=== PATIENT | male | born 1985 | race Asian ===

== ENCOUNTER 2021-03-26 06:26 | Emergency (ER) | payer OTHER ==
[~2021-03-26] VITALS: Ht 180.3 cm; Wt 94.3 kg
[2021-03-26 09:00] VITALS: BP 136/78; TEMP 98.9
== END 2021-03-26 09:00 | disposition home or self-care (01) ==
LOC: ED 06:26
DX: S43.492A Other sprain of left shoulder joint, initial encounter (principal); X58.XXXA Exposure to other specified factors, initial encounter; Y92.9 Unspecified place or not applicable
CPT/HCPCS: 96372; 99282; J1885

== ENCOUNTER 2021-06-10 07:32 | Emergency (ER) | payer OTHER ==
[~2021-06-10] VITALS: Ht 182.9 cm; Wt 104.3 kg
[2021-06-10 07:40] VITALS: TEMP 96.5
[2021-06-10 08:50] VITALS: BP 162/80
== END 2021-06-10 08:51 | disposition home or self-care (01) ==
LOC: ED 07:32
DX: M70.88 Other soft tissue disorders related to use, overuse and pressure other site (principal); Y93.89 Activity, other specified
CPT/HCPCS: 99282

== ENCOUNTER 2021-09-17 12:28 | Emergency (ER) | payer OTHER ==
[~2021-09-17] VITALS: Ht 182.9 cm; Wt 104.3 kg
[2021-09-17 12:37] VITALS: BP 187/67; TEMP 98.4
== END 2021-09-17 13:27 | disposition home or self-care (01) ==
LOC: ED 12:28
DX: S93.492A Sprain of other ligament of left ankle, initial encounter (principal); W18.39XA Other fall on same level, initial encounter; Y92.89 Other specified places as the place of occurrence of the external cause
CPT/HCPCS: 96372; 99283; J1885

== ENCOUNTER 2021-11-28 13:09 | Emergency (ER) | payer OTHER ==
[~2021-11-28] VITALS: Ht 182.9 cm; Wt 104.3 kg
[2021-11-28 13:13] VITALS: BP 147/72; TEMP 97.8
[2021-11-28] MEDS ORDERED: MELOXICAM7.5 MG PO (14:06)
[2021-11-28] MEDS ORDERED: MEDROL DOSEPAK4 MG PO (14:06)
== END 2021-11-28 14:11 | disposition home or self-care (01) ==
LOC: ED 13:09
DX: M79.18 Myalgia, other site (principal); M54.89 Other dorsalgia; G89.29 Other chronic pain
CPT/HCPCS: 93005; 96372; 99283; J1885; J2930

== ENCOUNTER 2022-04-18 18:56 | Emergency (ER) | payer OTHER ==
[~2022-04-18] VITALS: Ht 182.9 cm; Wt 95.3 kg
[~2022-04-18 18:56] MED LIST: MEDROL DOSEPAK4 MG PO; MELOXICAM7.5 MG PO
[2022-04-18 20:30] VITALS: BP 166/92; TEMP 98.7
== END 2022-04-18 20:30 | disposition home or self-care (01) ==
LOC: ED 18:56
DX: M62.838 Other muscle spasm (principal); G24.3 Spasmodic torticollis
CPT/HCPCS: 96372; 99283; J1885; J2360

== ENCOUNTER 2022-07-03 08:45 | Emergency (ER) | payer OTHER ==
[~2022-07-03] VITALS: Ht 182.9 cm; Wt 99.8 kg
[2022-07-03 09:00] VITALS: BP 175/98; TEMP 98.9
== END 2022-07-03 09:55 | disposition home or self-care (01) ==
LOC: ED 08:45
DX: J02.9 Acute pharyngitis, unspecified (principal); K12.2 Cellulitis and abscess of mouth
CPT/HCPCS: 99281

== ENCOUNTER 2022-09-25 08:07 | Emergency (ER) | payer OTHER ==
[~2022-09-25] VITALS: Ht 182.9 cm; Wt 107.0 kg
[2022-09-25 08:12] VITALS: BP 162/92; TEMP 97.6
== END 2022-09-25 08:47 | disposition home or self-care (01) ==
LOC: ED 08:07
DX: M79.18 Myalgia, other site (principal)
CPT/HCPCS: 96372; 99282; J1885